=== PATIENT | male | born 1975 | race Caucasian/White ===

== ENCOUNTER 2016-10-13 19:45 | Emergency (ER) | payer MEDICARE, MEDICAID ==
[~2016-10-13] VITALS: Ht 175.3 cm; Wt 65.8 kg
[2016-10-13] MEDS ORDERED: HYDROcodone/APAP 7.5 MG/325 MG (LORTAB, LORCET PLUS) TABLET PO STA (21:38)
[2016-10-13] MEDS ORDERED: DOXYCYCLINE 100 MG (VIBRAMYCIN) TABLET PO STA (21:38)
[2016-10-13] MEDS ORDERED: MUPIROCIN 2% OINT 22 GM (BACTROBAN) TUBE ONE (21:45)
[2016-10-13] MEDS ORDERED: LIDOCAINE 1% INJ 20 ML (XYLOCAINE) VIAL INJ ONE (21:45)
[2016-10-13] MEDS ORDERED: cefTRIAXone 1 GM (ROCEPHIN) VIAL IM ONE (21:45)
[2016-10-13] MEDS ORDERED: DOXY100T2 PO (21:46)
[2016-10-13] MEDS ORDERED: IBUP-1780 PO (21:46)
[2016-10-13] MEDS ORDERED: HYDR-3816 PO (21:46)
--- NOTE | 2016-10-13 21:46 | ED Integumentary General ---
General Chief Complaint: Skin/Wound Problems Stated Complaint: NOSE PAIN Nursing Triage Note: PT C/O SORE TO NOSE X 2 DAYS. PT HAS REDDENED, EDEMATOUS AREA TO TIP OF NOSE. Source: patient Exam Limitations: no limitations History of Present Illness Time seen by provider: 21:30 Initial Comments here with report of sore to the tip of his nose swelling and redness around it. He has a sore on the medial aspect of the right near. No other injury. No breathing problems. He is unsure how this happened. Timing/Duration: week, getting worse Severity: moderate Associated Symptoms: change in skin texture, edema, fever Allergies and Home Medications Allergies Coded Allergies: No Known Drug Allergies (Unverified , 10/13/16) Constitutional: see HPI, No chills, fever EENTM: no symptoms reported Respiratory: no symptoms reported Cardiovascular: no symptoms reported Gastrointestinal: no symptoms reported Musculoskeletal: no symptoms reported Skin: see HPI, change in color, lesions Psychiatric/Neurological: No Symptoms Reported Past Ivocvny-Phdtro-Hajvbh Hx Patient Social History Alcohol Use: Denies Use Recreational Drug Use: No Smoking Status: Never a Smoker 2nd Hand Smoke Exposure: No Recent Foreign Travel: No Contact w/Someone Who Travel: No Recent Infectious Disease Expo: No Recent Hopitalizations: No Seasonal Allergies Seasonal Allergies: No Surgeries HX Surgeries: Yes Surgeries: Cystectomy Respiratory Hx Respiratory Disorders: No Cardiovascular Hx Cardiac Disorders: No Neurological Hx Neurological Disorders: No Reviewed Nursing Assessment Reviewed/Agree w Nursing PMH: Yes Family Medical History Significant Family History: No Pertinent Family Hx Physical Exam Vital Signs Vital Sign - Last 12Hours 10/13/16 20:28 Temp 100.1 Pulse 83 Resp 20 B/P (MAP) 126/96 Pulse Ox 97 O2 Delivery Room Air Capillary Refill : Less Than 3 Seconds General Appearance: WD/WN, no apparent distress HEENT: other (small abrasion to the tip of the nose on the medial right near. Redness over the tip of the nose to about the area of the bridge. Swollen and tender.) Neck: full range of motion, supple Cardiovascular: regular rate, rhythm, no murmur Respiratory: lungs clear, normal breath sounds, no respiratory distress, no accessory muscle use Gastrointestinal: non tender, soft Back: normal inspection, no CVA tenderness, no vertebral tenderness Neurologic/Psychiatric: alert, oriented x 3 Skin: warm/dry Skin Problem Location: face (nose) Skin Problem Character: erythema, tenderness Progress/Results/Core Measures Results/Orders My Orders Orders - GERDA FARAH MD Hydrocodone/Apap 7.5/325 Tab (Lortab 7. (10/13/16 21:38) Ceftriaxone Injection (Rocephin Injectio (10/13/16 21:45) Doxycycline Hyclate Tablet (Vibramycin T (10/13/16 21:38) Lidocaine 1% Injection (Xylocaine 1% Inj (10/13/16 21:45) Mupirocin Ointment (Bactroban Ointment (10/14/16 09:00) Vital Signs/I&O Vital Sign - Last 12Hours 10/13/16 20:28 Temp 100.1 Pulse 83 Resp 20 B/P (MAP) 126/96 Pulse Ox 97 O2 Delivery Room Air Blood Pressure Mean: 106 Progress Note : Progress Note seen and evaluated. Hydrocodone 7.5 mg by mouth. Rocephin 1 g IM. Doxycycline 100 mg by mouth. Mupirocin ointment to the area of abrasion on the nose. Discharged home with return precautions. Patient verbalize understanding instructions and agreement with plan. Departure Impression Impression: Primary Impression: Cellulitis Qualified Codes: L03.211 - Cellulitis of face Disposition: HOME, SELF-CARE Condition: Stable Departure-Patient Inst. Decision time for Depature: 21:44 Referrals: NO,LOCAL PHYSICIAN (PCP) Primary Care Physician Patient Instructions: Cellulitis (Skin Infection), Adult (DC) Add. Discharge Instructions: All discharge instructions reviewed with patient and/or family. Voiced understanding. take medications as directed. Follow-up with your doctor for recheck and further evaluation. Return in 2 days for recheck if not improved. Return for worse pain, fever, swelling, breathing problems, extending redness onto the face or other concerns as needed. Scripts Ibuprofen (Ibuprofen) 800 Mg Tablet 800 MG PO Q8H Y for PAIN, #30 TAB 0 Refills Prov: GERDA FARAH MD 10/13/16 Hydrocodone/Acetaminophen (Hydrocodon-Acetaminoph 7.5-325) 1 Each Tablet 1 EACH PO Q6H, #10 TAB 0 Refills Prov: GERDA FARAH MD 10/13/16 Doxycycline Hyclate (Doxycycline Hyclate) 100 Mg Tablet 100 MG PO BID, #20 TAB 0 Refills Prov: GERDA FARAH MD 10/13/16 GERDA FARAH MD October 13, 2016 21:46
[2016-10-13 22:07] VITALS: BP 126/96
[2016-10-14] MEDS ORDERED: MUPIROCIN 2% OINT 22 GM (BACTROBAN) TUBE TOP SCH (09:00)
== END 2016-10-13 22:07 | disposition home or self-care (01) ==
LOC: ER 19:51
DX: L03.211 Cellulitis of face (principal)
CPT/HCPCS: 96372; 99283

== ENCOUNTER 2016-11-02 12:52 | Emergency (ER) | payer MEDICAID, MEDICARE ==
[~2016-11-02] VITALS: Ht 175.3 cm; Wt 61.2 kg
[~2016-11-02 12:52] MED LIST: DOXY100T2 PO; HYDR-3816 PO; IBUP-1780 PO
[2016-11-02 14:17] LABS: BILIRUBIN,URINE NEGATIVE (NEGATIVE); KETONES,URINE NEGATIVE (NEGATIVE); LEUKOCYTE ESTERASE ,URINE NEGATIVE (NEGATIVE); NITRITE,URINE NEGATIVE (NEGATIVE); PH,URINE 7 (5-9); PROTEIN,URINE NEGATIVE (NEGATIVE); UROBILINOGEN,URINE NORMAL (NORMAL)
[2016-11-02 14:25] LABS: SQUAMOUS EPITHELIAL CELL,UR RARE /HPF
--- NOTE | 2016-11-02 14:30 | ED GU-Male ---
General Chief Complaint: -Male Stated Complaint: GROIN PAIN Nursing Triage Note: pt c/o pelvic pain starting last night. Source: patient Exam Limitations: no limitations History of Present Illness Time seen by provider: 14:26 Initial Comments The patient is a 41-year-old white male who presents to the emergency room on his birthday with complaint of a painful cyst in the suprapubic area. He reports that there was a lump there yesterday but today it is much bigger and more painful. He also adds that he had had 2 cysts previously removed in the intertriginous area of the right groin. He rates this is a 12 a scale of 10 Timing/Duration: week, getting worse Severity/Quality: moderate Location: suprapubic Allergies and Home Medications Allergies Coded Allergies: No Known Drug Allergies (Unverified , 10/13/16) Constitutional: see HPI EENTM: no symptoms reported Respiratory: no symptoms reported Cardiovascular: no symptoms reported Gastrointestinal: no symptoms reported Genitourinary: no symptoms reported Musculoskeletal: no symptoms reported Skin: no symptoms reported Psychiatric/Neurological: No Symptoms Reported Endocrine: No Symptoms Reported Hematologic/Lymphatic: No Symptoms Reported Past Ftnvqtu-Jwztzs-Txjehs Hx Patient Social History Alcohol Use: Denies Use Recreational Drug Use: Yes (past hx) Smoking Status: Current Someday Smoker 2nd Hand Smoke Exposure: No Recent Foreign Travel: No Contact w/Someone Who Travel: No Recent Infectious Disease Expo: No Recent Hopitalizations: No Seasonal Allergies Seasonal Allergies: No Surgeries HX Surgeries: Yes Surgeries: Cystectomy Respiratory Hx Respiratory Disorders: No Cardiovascular Hx Cardiac Disorders: No Neurological Hx Neurological Disorders: No Family Medical History Significant Family History: No Pertinent Family Hx Physical Exam Vital Signs Vital Sign - Last 12Hours 11/02/16 13:15 Temp 98.2 Pulse 78 Resp 16 B/P (MAP) 131/79 Capillary Refill : Less Than 3 Seconds General Appearance: moderate distress HEENT: normal ENT inspection Neck: non-tender, full range of motion, supple, normal inspection Cardiovascular: normal peripheral pulses, regular rate, rhythm, no edema, no gallop, no JVD, no murmur Respiratory: chest non-tender, lungs clear, normal breath sounds, no respiratory distress, no accessory muscle use Gastrointestinal: normal bowel sounds, non tender, soft, no organomegaly, no pulsatile mass Comments The penis shows a red shiny plaque-like eruption over the glans and the distal shaft. There is 2 cm firm but fluctuant tender red mass immediately midline and suprapubic I&D : Site: cystic lesion 2.5 cm in diameter red and tender immediately superior to the Blade Size: 11 I & D Procedure: gauze wick placed Packing/Drain: Idoform / Progress The suprapubic area was prepped with cyproheptadine. The area was anesthetized with 1 percent Xylocaine and a 25-gauge needle. The area was opened with an 11 scalpel blade. Less material was expressed than II anticipated and was called appearing blood with a clumpy yellow material. The wound was opened further with hemostats and then packed with half inch iodoform gauze. Progress/Results/Core Measures Results/Orders Lab Results Laboratory Tests Test 11/02/16 14:10 11/02/16 14:55 Range/Units Urine Color YELLOW Urine Clarity CLEAR Urine pH 7 5-9 Urine Specific [place] 1.005 L 1.016-1.022 Urine Protein NEGATIVE NEGATIVE Urine Glucose (UA) NEGATIVE NEGATIVE Urine Ketones NEGATIVE NEGATIVE Urine Nitrite NEGATIVE NEGATIVE Urine Bilirubin NEGATIVE NEGATIVE Urine Urobilinogen NORMAL NORMAL MG/DL Urine Leukocyte Esterase NEGATIVE NEGATIVE Urine RBC (Auto) NEGATIVE NEGATIVE Urine RBC NONE /HPF Urine WBC NONE /HPF Urine Squamous Epithelial Cells RARE /HPF Urine Crystals NONE /LPF Urine Bacteria NEGATIVE /HPF Urine Casts NONE /LPF Urine Mucus NEGATIVE /LPF Urine Culture Indicated NO White Blood Count 6.1 4.3-11.0 10^3/uL Red Blood Count 4.42 4.35-5.85 10^6/uL Hemoglobin 14.4 13.3-17.7 G/DL Hematocrit 41 40-54 % Mean Corpuscular Volume 92 80-99 FL Mean Corpuscular Hemoglobin 33 25-34 PG Mean Corpuscular Hemoglobin Concent 35 32-36 G/DL Red Cell Distribution Width 13.8 10.0-14.5 % Platelet Count 223 130-400 10^3/uL Mean Platelet Volume 8.8 7.4-10.4 FL Neutrophils (%) (Auto) 72 42-75 % Lymphocytes (%) (Auto) 18 12-44 % Monocytes (%) (Auto) 9 0-12 % Eosinophils (%) (Auto) 1 0-10 % Basophils (%) (Auto) 0 0-10 % Neutrophils # (Auto) 4.4 1.8-7.8 X 10^3 Lymphocytes # (Auto) 1.1 1.0-4.0 X 10^3 Monocytes # (Auto) 0.6 0.0-1.0 X 10^3 Eosinophils # (Auto) 0.1 0.0-0.3 10^3/uL Basophils # (Auto) 0.0 0.0-0.1 10^3/uL Sodium Level 142 135-145 MMOL/L Potassium Level 3.8 3.6-5.0 MMOL/L Chloride Level 108 H 98-107 MMOL/L Carbon Dioxide Level 25 21-32 MMOL/L Anion Gap 9 5-14 MMOL/L Blood Urea Nitrogen 11 7-18 MG/DL Creatinine 1.00 0.60-1.30 MG/DL Estimat Glomerular Filtration Rate > 60 BUN/Creatinine Ratio 11 Glucose Level 66 L 70-105 MG/DL Calcium Level 8.7 8.5-10.1 MG/DL Total Bilirubin 1.0 0.1-1.0 MG/DL Aspartate Amino Transf (AST/SGOT) 20 5-34 U/L Alanine Aminotransferase (ALT/SGPT) 18 0-55 U/L Alkaline Phosphatase 86 40-136 U/L Total Protein 6.6 6.4-8.2 G/DL Albumin 4.1 3.2-4.5 G/DL My Orders Orders - FLORY JENNINGS MD Ua Culture If Indicated (11/02/16 14:11) Cbc With Automated Diff (11/02/16 14:25) Comprehensive Metabolic Panel (11/02/16 14:25) Lidocaine 1% Injection (Xylocaine 1% Inj (11/02/16 15:08) Vital Signs/I&O Vital Sign - Last 12Hours 11/02/16 13:15 Temp 98.2 Pulse 78 Resp 16 B/P (MAP) 131/79 Blood Pressure Mean: 96 Departure Impression Impression: Primary Impression: inclusion cyst Disposition: HOME, SELF-CARE Condition: Improved Departure-Patient Inst. Decision time for Depature: 15:52 Referrals: NO,LOCAL PHYSICIAN (PCP) Primary Care Physician Add. Discharge Instructions: All discharge instructions reviewed with patient and/or family. Voiced understanding. Call Dr. Ball office [phone] on Friday for outpatient appointment Omnicef as directed Change 4 x 4's as needed after soiling with drainage. Scripts Hydrocodone/Acetaminophen ([place] 7.5-325 Tablet) 1 Each Tablet 1 EACH PO 4 times daily, #10 TAB Prov: FLORY JENNINGS MD 11/02/16 Cefdinir (Cefdinir) 300 Mg Capsule 300 MG PO twice a day, #14 CAP Prov: FLORY JENNINGS MD 11/02/16 FLORY JENNINGS MD November 02, 2016 14:30
[2016-11-02 15:07] LABS: BASOPHILS % (AUTO) 0 % (0-10); EOSINOPHILS # (AUTO) 0.1 10^3/uL (0.0-0.3); EOSINOPHILS % (AUTO) 1 % (0-10); LYMPHOCYTES # (AUTO) 1.1 X 10^3 (1.0-4.0); LYMPHOCYTES % (AUTO) 18 % (12-44); MEAN CORPUSCULAR HEMOGLOBIN 33 PG (25-34); MEAN CORPUSCULAR HGB CONC 35 G/DL (32-36); MEAN CORPUSCULAR VOLUME 92 FL (80-99); MEAN PLATELET VOLUME 8.8 FL (7.4-10.4); MONOCYTES # (AUTO) 0.6 X 10^3 (0.0-1.0); MONOCYTES % (AUTO) 9 % (0-12); NEUTROPHILS # (AUTO) 4.4 X 10^3 (1.8-7.8); NEUTROPHILS % (AUTO) 72 % (42-75); PLATELET COUNT 223 10^3/uL (130-400); RED BLOOD COUNT 4.42 10^6/uL (4.35-5.85); RED CELL DISTRIBUTION WIDTH 13.8 % (10.0-14.5); WHITE BLOOD COUNT 6.1 10^3/uL (4.3-11.0)
[2016-11-02] MEDS ORDERED: LIDOCAINE 1% INJ 20 ML (XYLOCAINE) VIAL ONE (15:08)
[2016-11-02 15:29] LABS: ALANINE AMINOTRANSFERASE 18 U/L (0-55); ALBUMIN 4.1 G/DL (3.2-4.5); ANION GAP 9 MMOL/L (5-14); ASPARTATE AMINO TRANSFERASE 20 U/L (5-34); BLOOD UREA NITROGEN 11 MG/DL (7-18); BUN/CREATININE RATIO 11; CALCIUM 8.7 MG/DL (8.5-10.1); CARBON DIOXIDE 25 MMOL/L (21-32); CHLORIDE 108 MMOL/L (98-107); GFR ESTIMATED > 60; GLUCOSE 66 MG/DL (70-105); POTASSIUM 3.8 MMOL/L (3.6-5.0); SODIUM 142 MMOL/L (135-145); TOTAL PROTEIN 6.6 G/DL (6.4-8.2)
[2016-11-02] MEDS ORDERED: CEFD300C3 PO (15:57)
[2016-11-02] MEDS ORDERED: HYDR-756 PO (15:57)
[2016-11-02 16:20] VITALS: BP 119/88
== END 2016-11-02 16:20 | disposition home or self-care (01) ==
LOC: EDUNIT# 12:52 → ER 12:54
DX: L72.0 Epidermal cyst (principal); F17.210 Nicotine dependence, cigarettes, uncomplicated
CPT/HCPCS: 10061; 36415; 80053; 81000; 85025

== ENCOUNTER 2016-11-05 12:47 | Emergency (ER) | payer MEDICARE, MEDICAID ==
[~2016-11-05] VITALS: Ht 175.3 cm; Wt 61.2 kg
[~2016-11-05 12:47] MED LIST changes: +CEFD300C3 PO; +HYDR-756 PO
[2016-11-05] MEDS ORDERED: DOXY-227 PO (13:13)
[2016-11-05] MEDS ORDERED: TRAM50TA2 PO (13:13)
--- NOTE | 2016-11-05 13:15 | ED Integumentary General ---
General Chief Complaint: Skin/Wound Problems Stated Complaint: PELVIC PAIN/DRAINAGE Source: patient Exam Limitations: no limitations History of Present Illness Time seen by provider: 12:56 Initial Comments This 41-year-old man presents to the emergency room with complaints of swelling and soreness near a suprapubic abscess/cyst that was incised and drained by Dr. Jennings 3 days ago. The wound was packed. He was instructed to follow-up with Dr. Ball which she has not yet done. He was placed on Cefdinir. The incised abscess appears to be improved based on description from Dr. Jennings note. However, he complains that there is now more swelling, pain, and drainage in the right groin area just to the right of the scrotal base. He has had surgical excision or drainage of abscesses in that area previously. Chart was reviewed and no culture was performed on his prior visit. Allergies and Home Medications Allergies Coded Allergies: No Known Drug Allergies (Unverified , 10/13/16) Home Medications Cefdinir 300 Mg Capsule, 300 MG PO twice a day, #14 Prescribed by: FLORY JENNINGS on 11/02/16 1557 Doxycycline Hyclate 100 Mg Tablet.dr, 100 MG PO BID, #20 Prescribed by: GRACIELA CONRAD on 11/05/16 1313 Hydrocodone/Acetaminophen 1 Each Tablet, 1 EACH PO 4 times daily, #10 Prescribed by: FLORY JENNINGS on 11/02/16 1557 Tramadol HCl 50 Mg Tablet, 50 MG PO QID, #20 Prescribed by: GRACIELA CONRAD on 11/05/16 1313 Constitutional: no symptoms reported EENTM: no symptoms reported Respiratory: no symptoms reported Cardiovascular: no symptoms reported Gastrointestinal: no symptoms reported Genitourinary: see HPI Musculoskeletal: no symptoms reported Skin: see HPI Psychiatric/Neurological: No Symptoms Reported Endocrine: No Symptoms Reported Past Tucqvdh-Pcbxmw-Dgjqtd Hx Patient Social History Alcohol Use: Denies Use Recreational Drug Use: No Smoking Status: Current Everyday Smoker 2nd Hand Smoke Exposure: No Recent Foreign Travel: No Contact w/Someone Who Travel: No Recent Hopitalizations: Yes (CYST REMOVAL FROM LOWER ABD) Seasonal Allergies Seasonal Allergies: No Surgeries HX Surgeries: Yes (right groin abscess) Surgeries: Cystectomy Respiratory Hx Respiratory Disorders: No Cardiovascular Hx Cardiac Disorders: No Neurological Hx Neurological Disorders: No Reproductive System Hx Reproductive Disorders: No Gastrointestinal Hx Gastrointestinal Disorders: No Musculoskeletal Hx Musculoskeletal Disorders: No Endocrine Hx Endocrine Disorders: No HEENT HX ENT Disorders: No Cancer Hx Cancer: No Psychosocial Hx Psychiatric Problems: No Integumentary HX Skin/Integumentary Disorder: Yes Family Medical History Significant Family History: No Pertinent Family Hx Physical Exam Vital Signs Vital Sign - Last 12Hours 11/05/16 12:53 Temp 98.2 Pulse 68 Resp 20 B/P (MAP) 137/87 Pulse Ox 99 Capillary Refill : General Appearance: WD/WN, no apparent distress HEENT: normal ENT inspection Neck: normal inspection Cardiovascular: regular rate, rhythm, no edema, no murmur Respiratory: lungs clear, normal breath sounds, no respiratory distress, no accessory muscle use Extremities: normal inspection Neurologic/Psychiatric: lamp cleaner II-XII nml as tested, no motor/sensory deficits, alert, normal mood/affect, oriented x 3, EOM palsy, depressed affect Skin: normal color, warm/dry, other (cystic lesion in the suprapubic region with packing in place. Linear swelling and tenderness with scant drainage just to the right of the scrotum) Skin Problem Character: abscess (see above) Progress/Results/Core Measures Results/Orders Vital Signs/I&O Vital Sign - Last 12Hours 11/05/16 12:53 Temp 98.2 Pulse 68 Resp 20 B/P (MAP) 137/87 Pulse Ox 99 Progress Note : Progress Note Patient was placed on doxycycline. Tramadol was given for pain. Because the area has a appearance of hidradenitis, I am deferring further treatment to a data collection specialist. Departure Impression Impression: Primary Impression: Hidradenitis suppurativa Disposition: 01 HOME, SELF-CARE Condition: Stable Departure-Patient Inst. Decision time for Depature: 13:12 Referrals: NO,LOCAL PHYSICIAN (PCP) Primary Care Physician MADELIN AYERS BRETT D DO JENKINS, XAVIER M MD KIDO, TAKAAKI MD Patient Instructions: Hidradenitis Suppurativa Add. Discharge Instructions: Complete your antibiotic as prescribed. Please be aware that this antibiotic may cause some sensitivity. Use ibuprofen up to 600 mg every 6 hours as needed for pain. Add Tylenol ( acetaminophen up to 1000 mg every 6 hours as needed for additional pain relief. Use tramadol for pain not controlled by nujw-bqr-beladxl medications. Follow-up with the surgeon of your choice as excision of the affected areas may be necessary. See the list of surgeons below. Return to care if symptoms worsen, especially if you develop temperatures greater than 100. Wear loose fitting cotton underwear such as cotton boxer's to help prevent recurrence. All discharge instructions reviewed with patient and/or family. Voiced understanding. Scripts Tramadol HCl (Tramadol HCl) 50 Mg Tablet 50 MG PO QID, #20 TAB Prov: GRACIELA PANDYA MD 11/05/16 Doxycycline Hyclate (Doxycycline Hyclate) 100 Mg Tablet.dr 100 MG PO BID, #20 TAB Prov: GRACIELA PANDYA MD 11/05/16 Work/School Note: Work Release Form Date Seen in the Emergency Department: November 05, 2016 Return to Work: November 05, 2016 Restrictions: No Restrictions GRACIELA PANDYA MD November 05, 2016 13:15
[2016-11-05 13:27] VITALS: BP 137/87
== END 2016-11-05 13:27 | disposition home or self-care (01) ==
LOC: EDUNIT# 12:47 → ER 12:50
DX: L73.2 Hidradenitis suppurativa (principal)
CPT/HCPCS: 99282

== ENCOUNTER 2016-11-08 10:19 | Day surgery (SDC) | payer MEDICARE, MEDICAID ==
[~2016-11-08] VITALS: Ht 175.3 cm; Wt 65.8 kg
[~2016-11-08 10:19] MED LIST changes: +DOXY-227 PO; +TRAM50TA2 PO
[2016-11-08] MEDS ORDERED: ceFAZolin 1 GM/NS 50 ML IVPB IV ONE ×2 (10:45)
[2016-11-08 11:10] VITALS: BP 119/86
[2016-11-08] MEDS ORDERED: LACTATED RINGERS 1,000 ML IV PRN (11:32)
--- NOTE | 2016-11-08 11:59 | Progress Note-Pre Operative ---
Pre-Operative Progress Note H&P Reviewed The H&P was reviewed, patient examined and no changes noted. Date Seen by Provider: Nov 08, 2016 Time Seen by Provider: 11:59 Date H&P Reviewed: Nov 08, 2016 Time H&P Reviewed: 11:59 Pre-Operative Diagnosis: Abscess-pubic area ZENA GIL MD Nov 08, 2016 11:59 am
[2016-11-08] MEDS ORDERED: BUP/EPI 0.25% 1:200,000 (MARCAINE) 30 ML VIAL ONE (12:02)
[2016-11-08] MEDS ORDERED: LACTATED RINGERS 1,000 ML IV ONE (12:10)
[2016-11-08] MEDS ORDERED: fentaNYL INJECTION 100 MCG/2 ML AMP ONE (12:10)
[2016-11-08] MEDS ORDERED: proPOfol 200 MG/20 ML (DIPRIVAN) VIAL IV ONE (12:10)
[2016-11-08] MEDS ORDERED: MIDAZOLAM 2 MG/2 ML (VERSED) VIAL ONE (12:10)
[2016-11-08] MEDS ORDERED: ONDANSETRON 4 MG/2 ML (SDV) Z0FRAN ONE (12:10)
[2016-11-08] MEDS ORDERED: LIDOCAINE PF 2% 5 ML (XYLOCAINE) VIAL ONE (12:10)
[2016-11-08] MEDS ORDERED: SEVOFLURANE (ULTANE) 15 ML INHAL SOLN ONE ×2 (12:12→12:57)
[2016-11-08] MEDS ORDERED: MIDAZOLAM 2 MG/2 ML (VERSED) VIAL IVP ONE (12:15)
[2016-11-08] MEDS ORDERED: morphine INJ 10 MG/ML 1ML (SYR OR VIAL) ONE (13:08)
[2016-11-08] MEDS ORDERED: ONDANSETRON 4 MG/2 ML (SDV) Z0FRAN IVP PRN (13:15)
[2016-11-08] MEDS ORDERED: MEPERIDINE (DEMEROL) INJ 50 MG/ML IVP PRN (13:15)
[2016-11-08] MEDS ORDERED: HYDROmorphone (DILAUDID) 2 MG/ML VIAL IVP PRN (13:15)
[2016-11-08] MEDS: morphine INJ 10 MG/ML 1ML (SYR OR VIAL) IVP PRN ×2 (13:40→13:45)
[2016-11-08] MEDS ORDERED: HYDR-3812 PO (13:40)
--- NOTE | 2016-11-08 13:40 | Progress Note-Post Operative ---
Post-Operative Progess Note Surgeon (s)/Dietitian Teaching (s) Time Seen by Provider: 13:39 Surgeon ZENA GIL MD Dietitian Teaching: N/A Pre-Operative Diagnosis Abscess-pubic area Post-Operative Diagnosis Same Procedure & Operative Findings Date of Procedure 11/08/16 Procedure Performed/Findings I & D Anesthesia Type Gen Estimated Blood Loss Estimated blood loss (mL): Minimal Specimens/Packing Specimens Removed None ZENA GIL MD Nov 08, 2016 1:40 pm
--- NOTE | 2016-11-08 13:41 | Discharge Inst-Simple/Standard ---
Discharge Inst-Standard Discharge Medications New, Converted or Re-Newed RX: RX on Chart Patient Instructions/Follow Up Plan of Care/Instructions/FU: Change dressing with telfa daily. F/U in 2 weeks Activity as Tolerated: Yes Discharge Diet: No Restrictions ZENA GIL MD Nov 08, 2016 1:41 pm
[2016-11-08 14:15] VITALS: BP 110/80
[2016-11-08 14:45] VITALS: BP 123/89
[2016-11-08 15:15] VITALS: BP 127/88
[2016-11-08] MEDS ORDERED: HYDROcodone/APAP 5 MG/325 MG (LORTAB) TAB PO PRN (15:15)
[2016-11-08] MEDS ORDERED: CATHETER FLUSH 10 ML SYR IV PRN (15:30)
[2016-11-08 15:35] VITALS: BP 127/88
--- NOTE | 2016-11-08 18:03 | OPERATIVE REPORT ---
DATE OF SERVICE: 11/08/2016 PREOPERATIVE DIAGNOSIS: Abscess pubic region. POSTOPERATIVE DIAGNOSIS: Abscess pubic region. OPERATION: Incision and drainage. SURGEON: Zena Gil MD ANESTHESIA: General anesthesia. ESTIMATED BLOOD LOSS: Minimal. FLUIDS: 300 mL of crystalloid. TYPE OF WOUND: Type 4 (dirty wound). INDICATION FOR PROCEDURE: This gentleman presented with an abscess over the suprapubic region, requiring formal incision and drainage. Informed consent was obtained after reviewing the procedure in detail. DESCRIPTION OF PROCEDURE: He was placed supine on the operating table, and general anesthesia induced using a laryngeal mask airway. He had received prophylactic antibiotics intravenously. The area was prepared and draped in the usual sterile manner. A 2 cm incision was made over the suprapubic region and the abscess drained. Hemostasis was achieved using cautery and a nonadherent dressing applied. He tolerated the procedure reasonably well and was taken back to the nursing area after being extubated. Job ID: [id number] DocumentID: [id number] Dictated Date: 11/08/2016 13:38:45 [employer] Date: 11/08/2016 18:03:05 Dictated By: ZENA GIL MD [facility]
== END 2016-11-08 15:35 | disposition home or self-care (01) ==
LOC: SDC 10:19
PROVIDERS: ATTEND Surgery
DX: L02.211 Cutaneous abscess of abdominal wall (principal)
CPT/HCPCS: 87081

== ENCOUNTER 2016-11-11 12:54 | Emergency (ER) | payer MEDICAID, MEDICARE ==
[~2016-11-11] VITALS: Ht 175.3 cm; Wt 65.8 kg
[~2016-11-11 12:54] MED LIST changes: +HYDR-3812 PO
--- NOTE | 2016-11-11 14:28 | ED General ---
General Chief Complaint: Skin/Wound Problems Stated Complaint: POST OP COMPLICATIONS Nursing Triage Note: c/o suprapubic wound dehiscene. Noticed open wound today. Hx of recent abscess/surgery by Dr. Jennings. Requesting more pain medications. Has hydrocodone. Nursing Sepsis Screen: No Definite Risk Source of Information: Patient Exam Limitations: No Limitations History of Present Illness Time Seen by Provider: 14:28 Allergies and Home Medications Allergies Coded Allergies: No Known Drug Allergies (Unverified , 10/13/16) Home Medications Cefdinir 300 Mg Capsule, 300 MG PO twice a day, #14 Prescribed by: FLORY JENNINGS on 11/02/16 1557 Hydrocodone/Acetaminophen 1 Each Tablet, 1-2 TAB PO 4-6HR PRN for PAIN, #30 Ref 0 Prescribed by: ZENA GIL on 11/08/16 1340 Past Utmbcjc-Xvuxsx-Hnyywj Hx Patient Social History 2nd Hand Smoke Exposure: No Recent Foreign Travel: No Contact w/Someone Who Travel: No Recent Infectious Disease Expo: No Recent Hopitalizations: Yes (CYST REMOVAL FROM LOWER ABD) Seasonal Allergies Seasonal Allergies: No Surgeries HX Surgeries: Yes (right groin abscess) Surgeries: Cystectomy Respiratory Hx Respiratory Disorders: No Cardiovascular Hx Cardiac Disorders: No Neurological Hx Neurological Disorders: No Reproductive System Hx Reproductive Disorders: No Gastrointestinal Hx Gastrointestinal Disorders: No Musculoskeletal Hx Musculoskeletal Disorders: No Endocrine Hx Endocrine Disorders: No HEENT HX ENT Disorders: No Cancer Hx Cancer: No Psychosocial Hx Psychiatric Problems: No Integumentary HX Skin/Integumentary Disorder: Yes Blood Transfusions Hx Blood Disorders: No Family Medical History Significant Family History: No Pertinent Family Hx Physical Exam Vital Signs Vital Sign - Last 12Hours 11/11/16 13:44 Temp 97.5 Pulse 70 Resp 16 B/P (MAP) 146/78 Pulse Ox 98 O2 Delivery Room Air Capillary Refill : Less Than 3 Seconds Progress/Results/Core Measures Results/Orders Vital Signs/I&O Vital Sign - Last 12Hours 11/11/16 13:44 Temp 97.5 Pulse 70 Resp 16 B/P (MAP) 146/78 Pulse Ox 98 O2 Delivery Room Air Blood Pressure Mean: 100 Departure Impression Impression: Primary Impression: Wound healing well on examination Disposition: 01 HOME, SELF-CARE Condition: Improved Departure-Patient Inst. Decision time for Depature: 14:53 Referrals: ZENA GIL MD NO,LOCAL PHYSICIAN (PCP) Primary Care Physician Patient Instructions: Wound Care (DC) Add. Discharge Instructions: All discharge instructions reviewed with patient and/or family. Voiced understanding. Continue current home medications. Go directly from the emergency department to Dr. Gil office for your follow-up appointment as previously scheduled. Return to the emergency department for worsened symptoms or any other concerns. LEXI CORTES Nov 11, 2016 14:28
[2016-11-11] MEDS ORDERED: IBUPROFEN 800 MG (MOTRIN) TAB PO STA (14:54)
[2016-11-11] MEDS ORDERED: oxyCODONE/APAP 5/325MG (PERCOCET 5) TABLET PO STA (14:54)
[2016-11-11 15:00] VITALS: BP 142/70
== END 2016-11-11 15:02 | disposition home or self-care (01) ==
LOC: EDUNIT# 12:54 → ER 12:57
DX: L02.211 Cutaneous abscess of abdominal wall (principal); Z90.6 Acquired absence of other parts of urinary tract
CPT/HCPCS: 99281

== ENCOUNTER 2016-12-19 11:47 | Emergency (ER) | payer MEDICARE ==
[~2016-12-19] VITALS: Ht 175.3 cm; Wt 57.2 kg
--- NOTE | 2016-12-19 11:51 | ED Upper Extremity ---
General Stated Complaint: RT HAND SWELLING Source: patient History of Present Illness Time seen by provider: 11:50 Initial Comments Ambulatory into ER after arriving by ambulance because he does not have a ride. He reports right hand swelling after he punched a refrigerator a few days ago. He saw his PCP at the clinic in [place] who did an x-ray and told nothing was broken. However the swelling and pain persists so he states he wants a second opinion. Onset: just prior to arrival Severity: moderate Pain/Injury Location: right hand Method of Injury: direct blow Modifying Factors: Worse With Movement Allergies and Home Medications Allergies Coded Allergies: No Known Drug Allergies (Unverified , 10/13/16) Home Medications Amoxicillin/Potassium Clav 1 Each Tablet, 1 EACH PO BID, #14 discontinue bactrim/amoxil rx. Use Augmentin instead. Prescribed by: VINAY BUSH on 12/19/16 1210 Cefdinir 300 Mg Capsule, 300 MG PO twice a day, #14 Prescribed by: FLORY JENNINGS on 11/02/16 1557 Hydrocodone/Acetaminophen 1 Each Tablet, 1-2 TAB PO 4-6HR PRN for PAIN, #30 Ref 0 Prescribed by: ZENA GIL on 11/08/16 1340 Naproxen 500 Mg Tablet, 500 MG PO BID PRN for PAIN-MODERATE, #14 Prescribed by: VINAY BUSH on 12/19/16 1204 Constitutional: see HPI EENTM: see HPI Respiratory: no symptoms reported Cardiovascular: no symptoms reported Genitourinary: no symptoms reported Musculoskeletal: see HPI Skin: no symptoms reported Psychiatric/Neurological: No Symptoms Reported Past Qfrmoao-Uqpulr-Vaevmf Hx Patient Social History 2nd Hand Smoke Exposure: No Recent Hopitalizations: Yes (CYST REMOVAL FROM LOWER ABD) Seasonal Allergies Seasonal Allergies: No Surgeries HX Surgeries: Yes (right groin abscess) Surgeries: Cystectomy Respiratory Hx Respiratory Disorders: No Cardiovascular Hx Cardiac Disorders: No Neurological Hx Neurological Disorders: No Reproductive System Hx Reproductive Disorders: No Gastrointestinal Hx Gastrointestinal Disorders: No Musculoskeletal Hx Musculoskeletal Disorders: No Endocrine Hx Endocrine Disorders: No HEENT HX ENT Disorders: No Cancer Hx Cancer: No Psychosocial Hx Psychiatric Problems: No Integumentary HX Skin/Integumentary Disorder: Yes Blood Transfusions Hx Blood Disorders: No Family Medical History Significant Family History: No Pertinent Family Hx Physical Exam Vital Signs Vital Sign - Last 12Hours 12/19/16 11:51 Temp 98.1 Pulse 70 Resp 16 B/P (MAP) 126/83 Pulse Ox 98 O2 Delivery Room Air Capillary Refill : General Appearance: WD/WN, no apparent distress HEENT: PERRL/EOMI, normal ENT inspection Neck: non-tender, full range of motion Respiratory: no respiratory distress, no accessory muscle use Gastrointestinal: normal bowel sounds, non tender, soft Shoulder: normal inspection, non-tender Elbow/Forearm: normal inspection, non-tender, no evidence of injury, Right Wrist: Yes normal inspection, Yes non-tender Hand: non-tender, Right, ecchymosis, soft tissue tenderness, swelling (there is minimal swelling over the dorsal aspect of the hand. 2 small lacerations over the third MCP joint area and there is no drainage from these. He is able to flex and extend the fingers. He is afebrile. There is no circumferential swelling to the fingers or hand.) Neurologic/Psychiatric: alert, normal mood/affect, oriented x 3 Skin: normal color, warm/dry Comments There are 2 lacerations over the dorsal third MCP joint. However there is no drainage. He assures me these are not from bite wounds. Progress/Results/Core Measures Results/Orders My Orders Orders - VINAY BUSH APRN Hand, Right, 3 Views (12/19/16 11:49) Ceftriaxone Injection (Rocephin Injectio (12/19/16 12:15) Ketorolac Injection (Toradol Injection) (12/19/16 12:15) Amoxicillin/Clavulanate Tablet (Augmenti (12/19/16 12:15) Vital Signs/I&O Vital Sign - Last 12Hours 12/19/16 11:51 Temp 98.1 Pulse 70 Resp 16 B/P (MAP) 126/83 Pulse Ox 98 O2 Delivery Room Air Departure Communication Progress Notes There is a brownish discoloration of the hand. The consistent more with ecchymosis however there is some swelling and lacerations we will treat this as if it is a cellulitis. 1208-patient now states "I don't want to lie to you. I didn't punch a refrigerator. My cat shit on the rug so I grabbed it by the neck with my left hand and punched it with my right hand and these are teeth patel from the cat" Impression Impression: Primary Impression: Contusion of hand Additional Impression: Cellulitis Disposition: HOME, SELF-CARE Condition: Stable Departure-Patient Inst. Decision time for Depature: 12:01 Referrals: NO,LOCAL PHYSICIAN (PCP/Family) Primary Care Physician Patient Instructions: Cellulitis (Skin Infection), Adult (DC), Contusion (DC) Add. Discharge Instructions: 1. Return to ER for fever greater than 100.5 2. Follow-up with your regular doctor tomorrow 3. Take the antibiotics as directed. I've sent them [facility] the [facility]. These are very important to take. It will not get better without these. Scripts Amoxicillin/Potassium Clav (Augmentin 875-125 Tablet) 1 Each Tablet 1 EACH PO BID, #14 TAB discontinue bactrim/amoxil rx. Use Augmentin instead. Prov: VINAY BUSH APRN 12/19/16 Naproxen (Naprosyn) 500 Mg Tablet 500 MG PO BID Y for PAIN-MODERATE, #14 TAB Prov: VINAY BUSH APRN 12/19/16 Work/School Note: Work Release Form Date Seen in the Emergency Department: Dec 19, 2016 Return to Work: Dec 20, 2016 Other Restrictions Listed Below: No use of right hand for one week VINAY BUSH APRN Dec 19, 2016 11:51
[2016-12-19] MEDS ORDERED: SULF1TAB35 PO (12:02)
[2016-12-19] MEDS ORDERED: AMOX500C2 PO (12:02)
[2016-12-19] MEDS ORDERED: NAPR500T PO (12:04)
--- NOTE | 2016-12-19 12:07 | Diagnostic Imaging Report ---
INDICATION: Hit refrigerator two days earlier, now with pain, swelling. TECHNIQUE: Three views of the right hand. CORRELATION STUDY: None. FINDINGS: There is normal alignment and appearance of the osseous structures of the hand. The joint spaces are maintained. There is no acute fracture. There is presence of soft tissue swelling particularly along the dorsal aspect of the hand. IMPRESSION: Negative for acute bony abnormality of the hand. Dictated by: Dictated on workstation # [id number]
[2016-12-19] MEDS ORDERED: AMOX-358 PO (12:10)
[2016-12-19] MEDS ORDERED: cefTRIAXone INJECTION 1,000 MG in NS (IVPB) 50 ML IV ONE (12:15)
[2016-12-19] MEDS ORDERED: AUGMENTIN 875 MG TAB (AMOXICILLIN/CLAVULANATE) PO SCH (12:15)
[2016-12-19] MEDS ORDERED: KETOROLAC 60 MG/2 ML VIAL IM ONE (12:15)
[2016-12-19 12:20] VITALS: BP 124/80
== END 2016-12-19 12:20 | disposition home or self-care (01) ==
LOC: EDUNIT# 11:47 → ER 11:49
DX: S60.221A Contusion of right hand, initial encounter (principal); L03.113 Cellulitis of right upper limb; W22.8XXA Striking against or struck by other objects, initial encounter; W55.01XA Bitten by cat, initial encounter; Y92.009 Unspecified place in unspecified non-institutional (private) residence as the place of occurrence of the external cause; Y99.8 Other external cause status
CPT/HCPCS: 73130; 99282